=== PATIENT | male | born 1995 | race Caucasian/White ===

== ENCOUNTER 2019-10-30 20:48 | Emergency (ER) | payer BC ==
--- NOTE | 2019-10-30 20:54 | PDOC ---
Rapid Medical Evaluation Time Seen by Provider: 10/30/19 20:52 Medical Evaluation: 10/30/19 20:53 HPI: R thumb pain s/p fall last night PE: No gross deficits ORDERS: X-ray Discharge Disposition - Diagnosis Pain of right thumb - Referrals - Patient Instructions - Post Discharge Activity
--- OUTSIDE RECORDS SUMMARY | 2019-10-30 21:04 | XMS ---
:1995 Author Organization [facility] Support Name Relationship Address Phone UE Unavailable Unavailable Unavailable [employer] [address] [place] [address] Re-disclosure Warning The records that you are about to access may contain information from federally- assisted alcohol or drug abuse programs. If such information is present, then the following federally mandated warning applies: This information has been disclosed to you from records protected by federal confidentiality rules (42 CFR part 2). The federal rules prohibit you from making any further disclosure of this information unless further disclosure is expressly permitted by the written consent of the person to whom it pertains or as otherwise permitted by 42 CFR part 2. A general authorization for the release of medical or other information is NOT sufficient for this purpose. The Federal rules restrict any use of the information to criminally investigate or prosecute any alcohol or drug abuse patient.The records that you are about to access may contain highly sensitive health information, the redisclosure of which is protected by Article 27-F of the [facility] Public Health law. If you continue you may haveaccess to information: Regarding HIV / AIDS; Provided by facilities licensed or operated by the [facility] Office of Mental Health; or Provided by the [facility] Office for People With Developmental Disabilities. If such information is present, then the following [facility] mandated warning applies: This information has been disclosed to you from confidential records which are protected by state law. State law prohibits you from making any further disclosure of this information without the specific written consent of the person to whom it pertains, or as otherwise permitted by law. Any unauthorized further disclosure in violation of state law may result in a fine or skilled nursing sentence or both. A general authorization for the release of medical or other information is NOT sufficient authorization for further disclosure. Insurance Providers Payer name Policy type / Policy ID Covered Covered republican's Policy Plan Coverage type republican ID relationship to [employer] Information [employer] PPO [id number] SP [id number]
[2019-10-30 21:07] VITALS: BP 153/92; PULSE 90; TEMP 98.6; BMI 31.8
--- NOTE | 2019-10-30 21:55 | PDOC ---
History of Present Illness - General Chief Complaint: Pain Stated Complaint: FALL Time Seen by Provider: 10/30/19 20:52 History Source: Patient Exam Limitations: No Limitations - History of Present Illness Initial Comments: 10/30/19 21:50 Patient is a 24-year-old male with history of gastric bypass here with complaints of right thumb pain x1 day. Patient states that he slipped and fell jamming the thumb and has had pain which is sharp 9/10 only with movement. PMD: in [place] PMHX: as above PSOCHX: neg etoh, neg drug, neg cig ALL: NKDA GENERAL/CONSTITUTIONAL: [No fever or chills. No weakness. No weight change.] HEAD, EYES, EARS, NOSE AND THROAT: [No change in vision. No ear pain or discharge. No sore throat.] MUSCULOSKELETAL: [(+) joint or muscle swelling or pain. No neck or back pain.] SKIN AND BREASTS: [No rash or easy bruising.] NEUROLOGIC: [No headache, vertigo, loss of consciousness, or loss of sensation.] ALLERGIC/IMMUNOLOGIC: [No hives or skin allergy. No latex allergy.] GENERAL: [The patient is awake, alert, and fully oriented, in no acute distress.] HEAD: [Normal with no signs of trauma.] EYES: [Pupils equal, round and reactive to light, extraocular movements intact, sclera anicteric, conjunctiva clear.] EXTREMITIES: [Decreased range of motion for the right thumb, (+) tenderness and swelling to the base of the PIP, No clubbing or cyanosis. No cords, erythema, or tenderness.] NEUROLOGICAL: [Cranial nerves II through XII grossly intact. Normal speech, normal gait.] PSYCH: [Normal mood, normal affect.] SKIN: [Ecchymosis to the thenar eminence, warm, Dry, normal turgor, no rashes or lesions noted.] Past History - Medical History Allergies/Adverse Reactions: Allergies Allergy/AdvReac Type Severity Reaction Status Date / Time No Known Allergies Allergy Verified 10/30/19 20:56 COPD: No - Psycho-Social/Smoking History Smoking History: Never smoked - Substance Abuse Hx (Audit-C & DAST Scrn) How often the patient has a drink containing alcohol: Never Score: In Men: 4 or > Positive; In Women: 3 or > Positive: 0 Screen Result (Pos requires Nsg. Audit-10AR): Negative In the last yr the pt used illegal drug/Rx for NonMed reason: No Score: Yes response is considered Positive: 0 Screen Result (Positive result requires Nsg. DAST-10): Negative *Physical Exam - Vital Signs Last Vital Signs Temp Pulse Resp BP Pulse Ox 98.6 F 90 19 153/92 99 10/30/19 20:52 10/30/19 20:52 10/30/19 20:52 10/30/19 20:52 10/30/19 20:52 Medical Decision Making - Medical Decision Making 10/30/19 21:50 Patient is a 24-year-old male with history of gastric bypass here with complaints of right thumb pain x1 day. Patient states that he slipped and fell jamming the thumb and has had pain which is sharp 9/10 only with movement. ' Patient sustained a fracture of the thumb Splint I discussed the physical exam findings, ancillary test results and final diagnoses with the patient. I answered all of the patient's questions. The patient was satisfied with the care received and felt comfortable with the discharge plan and treatment plan. The Patient agrees to follow up with the orthopedics within 24-72 hours. 10/30/19 22:24 Discharge - Discharge Information Problems reviewed: Yes Clinical Impression/Diagnosis: Pain of right thumb Thumb fracture Qualifiers: Encounter type: initial encounter Fracture type: closed Phalanx: proximal Fracture alignment: nondisplaced Laterality: right Qualified Code(s): S62.514A - Nondisplaced fracture of proximal phalanx of right thumb, initial encounter for closed fracture Condition: Stable - Follow up/Referral Referrals: Ryan Krishna MD [Staff Physician] - - Patient Discharge Instructions Patient Printed Discharge Instructions: Finger Fracture Additional Instructions: Your Discharge Instructions: You must call primary care physician within 24 hours to arrange follow-up. Return to the Emergency Department with any new, persistent or worsening symptoms, for fever, chills, SOB, dizziness or any other concerning changes that may occur. Follow-up with orthopedist in 1 to 2 days. Continue to ice the finger elevate. - Post Discharge Activity
== END 2019-10-30 22:23 | disposition home or self-care (01) ==
LOC: JERFT 20:48 → JER 20:48 → JERFT 22:23
DX: S62.514A Nondisplaced fracture of proximal phalanx of right thumb, initial encounter for closed fracture (principal)
CPT/HCPCS: 73140-TC-RT-FY; 99283-25

== ENCOUNTER 2020-09-09 19:24 | Emergency (ER) | payer BC, OTHER ==
[2020-09-09 19:31] VITALS: BP 130/86; PULSE 82; TEMP 98.2; BMI 27.2
== END 2020-09-09 20:07 | disposition home or self-care (01) ==
LOC: JER 19:24 → JERFT 19:24
DX: L03.032 Cellulitis of left toe (principal)
CPT/HCPCS: 99283-25

== ENCOUNTER 2021-03-08 21:21 | Emergency (ER) | payer OTHER ==
[2021-03-08 21:30] VITALS: BP 159/93; PULSE 105; TEMP 98.3; BMI 27.8
[2021-03-08] MEDS ORDERED: FAMOTIDINE 20 MG/50 ML IVPB 20 MG/50 ML MG IVPB ONE ×2 (22:59→23:29)
[2021-03-08] MEDS ORDERED: MAG HYDROX/AL HYDROX/SIMETH 30 ML UNIT-DOSE CUP PO ONE (22:59)
[2021-03-08] MEDS ORDERED: LACTATED RINGERS SOLUTION 1000 ML INFUS.BAG IV ONE (23:03)
[2021-03-08] MEDS ORDERED: MAG HYDROX/AL HYDROX/SIMETH 30 ML UNIT-DOSE CUP ONE (23:18)
[2021-03-08 23:39] LABS: BASO % 0.3 % (0-2.0); EOS % 1.2 % (0-4.5); HEMATOCRIT 45.1 % (35.4-49); HEMOGLOBIN 14.8 GM/dL (11.7-16.9); LYMPH % 30.2 % (8-40); MCH 26.6 pg (25.7-33.7); MCHC 32.9 g/dl (32.0-35.9); MEAN CELL VOLUME 80.9 fl (80-96); MEAN PLT VOLUME 8.2 fl (7.5-11.1); MONO % 9.7 % (3.8-10.2); NEUT % 58.6 % (42.8-82.8); PLATELET COUNT 266 10^3/uL (134-434); RBC 5.57 M/mm3 (4.00-5.60); RDW 14.5 % (11.9-15.9); WHITE BLOOD COUNT 6.6 K/mm3 (4.0-10.0)
[2021-03-09] LABS: ALBUMIN 4.3 g/dl (3.4-5.0); BLOOD UREA NITROGEN 12.8 mg/dL (7-18); MAGNESIUM 2.2 mg/dL (1.8-2.4)
[2021-03-09 00:03] LABS: CREATININE 0.8 mg/dL (0.55-1.3)
[2021-03-09 00:04] LABS: BILIRUBIN,TOTAL 0.4 mg/dL (0.2-1); TOT PROT 7.4 g/dl (6.4-8.2)
== END 2021-03-09 02:21 | disposition home or self-care (01) ==
LOC: JER 21:21
PROC: 3E033GC Introduction of Other Therapeutic Substance into Peripheral Vein, Percutaneous Approach (ICD-10-PCS; principal; 2021-03-08)
DX: K29.70 Gastritis, unspecified, without bleeding (principal)
CPT/HCPCS: 36415; 74177-TC; 80053; 83690; 83735; 85025; 96374; 99285-25; Q9967

== ENCOUNTER 2021-09-10 11:47 | Emergency (ER) | payer OTHER ==
[2021-09-10 12:12] VITALS: BP 148/98; RESP 18; TEMP 98.2; BMI 24.4
[2021-09-10] MEDS ORDERED: IBUPROFEN 600 MG TABLET (FP) PO ONE ×2 (12:32→12:49)
[2021-09-10 13:38] VITALS: PULSE 82
== END 2021-09-10 13:44 | disposition home or self-care (01) ==
LOC: JERFT 11:47
DX: S93.492A Sprain of other ligament of left ankle, initial encounter (principal)
CPT/HCPCS: 73610-TC-LT-FY; 99284-25

== ENCOUNTER 2022-11-24 10:47 | Emergency (ER) | payer OTHER ==
[2022-11-24 10:52] VITALS: RESP 18; BMI 26.8
[2022-11-24] MEDS ORDERED: LIDOCAINE HCL 2% JELLY 10 ML CARTRIDGE PR ONE (11:37)
[2022-11-24 13:24] VITALS: BP 152/94; PULSE 89; TEMP 98
== END 2022-11-24 13:25 | disposition home or self-care (01) ==
LOC: JER 10:47
DX: K62.89 Other specified diseases of anus and rectum (principal); K64.4 Residual hemorrhoidal skin tags
CPT/HCPCS: 99283-25

== ENCOUNTER 2024-05-01 04:19 | Emergency (ER) | payer OTHER ==
[2024-05-01 04:28] VITALS: BP 148/99; PULSE 116; RESP 18; TEMP 99.5; BMI 24.1
[2024-05-01] MEDS: ACETAMINOPHEN 500 MG TABLET (FP) PO ONE (05:11)
[2024-05-01] MEDS ORDERED: ACETAMINOPHEN 500 MG TABLET (FP) ONE (05:12)
[2024-05-01] MEDS ORDERED: oxyCODONE HCL 5 MG TABLET ONE (06:06)
[2024-05-01] MEDS: oxyCODONE HCL 5 MG TABLET PO ONE (06:12)
== END 2024-05-01 06:27 | disposition home or self-care (01) ==
LOC: JER 04:19
DX: S82.851A Displaced trimalleolar fracture of right lower leg, initial encounter for closed fracture (principal); W01.190A Fall on same level from slipping, tripping and stumbling with subsequent striking against furniture, initial encounter
CPT/HCPCS: 73610-TC-RT-FY; 99283-25

== ENCOUNTER 2024-05-01 13:46 | Emergency (ER) | payer OTHER ==
[2024-05-01 13:56] VITALS: BP 109/63; PULSE 127; RESP 18; TEMP 98.6; BMI 24.3
[2024-05-01] MEDS ORDERED: oxyCODONE HCL 5 MG TABLET ONE (14:56)
[2024-05-01] MEDS: oxyCODONE HCL 5 MG TABLET PO ONE (15:00)
== END 2024-05-01 15:07 | disposition home or self-care (01) ==
LOC: JERFT 13:46
PROC: 2W3SX1Z Immobilization of Right Foot using Splint (ICD-10-PCS; principal; 2024-05-01)
DX: S82.851A Displaced trimalleolar fracture of right lower leg, initial encounter for closed fracture (principal); X58.XXXA Exposure to other specified factors, initial encounter
CPT/HCPCS: 99283-25